=== PATIENT | male | born 1950 | race Caucasian/White ===

== ENCOUNTER → 2019-01-05 | Outpatient (CLI) | payer OTHER ==
[~2019-01-05] VITALS: Ht 185.4 cm; Wt 112.5 kg
[~2019-01-05] MED LIST: CENTRUM SILVER1 EAC4 PO; CLARITIN10 MG PO; FISH OIL 1,001000 M2 PO; HYDROCODONE-AP1 EAC6 PO; IBUPROFEN 200200 M1 PO; LISINOPRIL10 MG PO; ONDANSETRON HCL4 M3 PO; PEPCID AC20 MG PO; PRINIVIL10 MG PO; PROTONIX40 M1 PO; TUMS PO
--- NOTE | ~2019-01-05 | P ---
[facility] [place] [address] [place] [address] PROCEDURE REPORT Name: SHAKEELGUIDavid YATES Room #: [facility] [id number] Admission: 01/05/19 ������������������ Attend Phys: Kevon Peng Discharge: ������������������ Date of : 50 Report #: [id number] THIS REPORT FOR: //name// CC: Kevon Franklin DO DATE OF SERVICE: 01/05/2019 PROCEDURE PERFORMED: Upper endoscopy with biopsies. HISTORY OF PRESENT ILLNESS: The patient is a 69-year-old male with a history of anemia. Hemoglobin has been in the 6.9-7.1 range recently. He denies any obvious bright red blood per rectum or melena. He does report using Advil b.i.d. for a long period of time. He reports mild heartburn symptoms at times. He has taken Pepcid in the past on a p.r.n. basis. Denies any dysphagia. Plan is for EGD and colonoscopy today. DESCRIPTION OF PROCEDURE: The risks and benefits of the procedure were explained to the patient, those risks including but not limited to bleeding, perforation, the risk of sedation. He understood these risks and gave informed consent. Sedation was given using propofol per anesthesia. Next, using a standard Olympus upper endoscope, the scope was placed in the patient's mouth and advanced under direct vision through the esophagus, stomach and into the second portion of the duodenum. The upper and mid esophagus were normal in appearance. At the GE junction, grade A erosive esophagitis was noted. Also, noted was a possible short segment of Warren's. Biopsies were obtained. Overall, the gastric mucosa was normal. The pylorus was normal and patent. The duodenal bulb, first and second portion were all normal. Biopsies of the duodenum were obtained to rule out the possibility of celiac sprue. The scope was then withdrawn and the procedure terminated. The patient tolerated the procedure well. IMPRESSION: 1. Grade A erosive esophagitis. No signs of bleeding. 2. 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 3. Otherwise, normal upper endoscopy. RECOMMENDATIONS: 1. Await biopsy results. 2. Recommend daily PPI therapy. 3. We will proceed with colonoscopy next today. [facility] [address] [place] [address] PROCEDURE REPORT Name: GUI BECKFORD Room #: [facility] [id number] Admission: 01/05/19 ������������������ Attend Phys: Kevon Peng Discharge: ������������������ Date of : 50 Report #: [id number] Thank you for allowing me to participate in his care. ��������������������������������������������� ���������������������������������������� By: ��������������������������������������������� 1149 8 Kevon Alonso MD /nt
--- NOTE | ~2019-01-05 | P ---
[facility] [place] [address] PROCEDURE REPORT Name: SHAKEELGUIDavid YATES Room #: REG [facility]#: [id number] Admission: 01/05/19 ������������������ Attend Phys: Kevon Peng Discharge: ������������������ Date of : 50 Report #: [id number] THIS REPORT FOR: //name// CC: Kevon Franklin DO DATE OF SERVICE: 01/05/2019 PROCEDURE PERFORMED: Colonoscopy with biopsies. HISTORY OF PRESENT ILLNESS: The patient is a 69-year-old male with a history of anemia, recent hemoglobin were 6.9 and 7.1. He denies any obvious bright red blood per rectum or melena. No abdominal pain. He does report loose stools after having his gallbladder removed. Upper endoscopy was just performed, which showed grade A erosive esophagitis, mild. No evidence of bleeding, possible Warren's, otherwise negative. No family history of colon cancer. Plan is for colonoscopy next today. DESCRIPTION OF PROCEDURE: The risks and benefits of the procedure were explained to the patient, those risks including but not limited to bleeding, perforation and the risk of sedation. He understood these risks and gave informed consent. Sedation was given using propofol per anesthesia. Next, a digital rectal exam was initially performed, which showed external hemorrhoids. Next, using a standard Olympus colonoscope, the scope was placed in the patient's anus and advanced under direct vision to the cecum. The overall prep was excellent. In the cecum, there was a 4 mm sessile polyp. This was removed with cold forceps, otherwise normal. The ileocecal valve was normal. The terminal ileum was intubated and normal in appearance. The ascending, transverse, descending and sigmoid colon were normal. The rectal mucosa was normal. On retroflexion, small internal hemorrhoids were noted and again external hemorrhoids were noted as the scope was then withdrawn. No evidence of bleeding. The scope was then withdrawn and the procedure terminated. The patient tolerated the procedure well. IMPRESSION: 1. Small colonic polyp. 2. Internal and external hemorrhoids. 3. Otherwise, normal colonoscopy. RECOMMENDATIONS: 1. Await biopsy results. 2. If polyp is hyperplastic, repeat in 10 years; if adenomatous polyp, repeat in 5 years. 3. There were no signs or stigmata of bleeding on exam today. The patient has grade A erosive esophagitis and hemorrhoids, but again no signs of bleeding. [address] [address] PROCEDURE REPORT Name: GUI BECKFORD Room #: REG CLI Ghassan#: [id number] Admission: 01/05/19 ������������������ Attend Phys: Kevon Peng Discharge: ������������������ Date of : 50 Report #: [id number] Could proceed with cardiac catheterization at this time. Consider Hemoccult testing stools. Also, would recommend oral iron therapy and continuing to monitor hemoglobin. Thank you for allowing me to participate in his care. ��������������������������������������������� ���������������������������������������� By: ��������������������������������������������� 1223 08 Kevon Alonso MD /julio césar
--- NOTE | 2019-01-06 16:06 | PATH ---
[facility] [place] [address] PATHOLOGY RPT PROCEDURE Name: BECKFORDRENÉDavid YATES Room #: REG [facility] MJames.#: [id number] ������������������ Admission: 01/05/19 ������������������ Date of : 50 Discharge: Report #: [id number] Path Case #: [id number] [facility] Accession Number: [id number] . 01 Material submitted: . PART A: duodenum - DUODENAL BX R/O SPRUE HX: ANEMIA PART B: esophagus - BX DISTAL ESOPHAGUS R/O BARRETTS. Modifiers: distal PART C: cecum - BX POLYP AT CECUM . 01 Clinical history: . Pre-OP DX: Anemia Post-OP DX: Esophagitis, anemia, colon polyp, hemorrhoids . 02 Diagnosis: A. Small bowel mucosa, duodenum, rule out sprue, endoscopic biopsy: - No diagnostic abnormalities present. - Negative for villous blunting or increase in intraepithelial lymphocytes. . B. Gastroesophageal mucosa, distal esophagus, rule out Warren's, endoscopic biopsy: - Moderate chronic inflammation. - Negative for intestinal metaplasia or dysplasia. . C. Polyp, at cecum, endoscopic biopsy: - Tubular adenoma. - Negative for high-grade dysplasia. . (IUV:carburetor specialist; 01/06/2019) MBR/01/06/2019 . 02 Electronically signed: . Brisa Cui MD, Pathologist NPI- [id number] . 01 Gross description: . A. Received in formalin labeled "René Beckford BX duodenum, rule out sprue," are 4 segments of middleton soft tissue measuring 1.1 x 0.9 x 0.2 cm in aggregate dimensions and ranging from 0.3 to 0.7 cm in maximum dimension. The specimen is submitted entirely in cassette A1. . B. Received in formalin labeled "René Beckford BX distal esophagus, rule out Warren's," is a single segment of middleton soft tissue measuring 0.5 cm in maximum dimension. The specimen is entirely submitted in cassette B1. . C. Received in formalin labeled "René Beckford BX polyp at cecum," are [address] [address] PATHOLOGY RPT PROCEDURE Name: RENÉ BECKFORD Room #: REG CLMeagan Ferrell#: [id number] ������������������ Admission: 01/05/19 ������������������ Date of : 50 Discharge: Report #: [id number] Path Case #: [id number] 2 segments of middleton soft tissue measuring 0.9 x 0.2 x 0.1 cm in aggregate dimensions and ranging from 0.4 to 0.5 cm in maximum dimension. The specimen is submitted entirely in cassette C1. (TSD; 01/05/2019) TOB/TOB . 02 Pathologist provided ICD-10: K20.9, D12.0 . 02 CPT . 896380, 313066, 376118 Specimen Comment: A courtesy copy of this report has been sent to Specimen Comment: [phone], . Specimen Comment: Report sent to / DR WIGGINS Performed at: [address], [place] [id number] MD Ted Yarbrough MD Phone: [phone] Performed at: [address] [id number] MD Brisa Cui MD Phone: [phone]
== END | disposition home or self-care (01) ==
LOC: GI 08:42
DX: D12.0 Benign neoplasm of cecum (principal); K20.9 Esophagitis, unspecified; K64.8 Other hemorrhoids; K64.4 Residual hemorrhoidal skin tags; I10 Essential (primary) hypertension; K21.9 Gastro-esophageal reflux disease without esophagitis; Z90.49 Acquired absence of other specified parts of digestive tract; Z87.891 Personal history of nicotine dependence; Z98.890 Other specified postprocedural states; Z79.899 Other long term (current) drug therapy
CPT/HCPCS: 62110; 62900

== ENCOUNTER → 2019-02-10 | Outpatient (CLI) | payer OTHER ==
[2019-02-10 09:00] VITALS: BP 142/61
[2019-02-10 10:25] VITALS: BP 129/61
--- NOTE | 2019-02-10 15:03 | NUR ---
IN FOR 1ST DAY OF INJECTAFER FOR IRON DEFICIENCY ANEMIA. ADMISSION HISTORY AND ASSESSMENT COMPLETED. TOLERATED INFUSION WITHOUT INCIDENT. OBSERVED FOR 30 MINUTES POST INFUSION. NO ADVERSE REACTION NOTED. BP GOOD. TO RETURN NEXT THURSDAY FOR 2ND INFUSION. DISMISSED IN GOOD CONDITION.
== END ==
LOC: OPONC 06:29
DX: D50.9 Iron deficiency anemia, unspecified (principal); T45.4X5A Adverse effect of iron and its compounds, initial encounter; D63.8 Anemia in other chronic diseases classified elsewhere
CPT/HCPCS: 95000

== ENCOUNTER → 2019-02-17 | Outpatient (CLI) | payer OTHER ==
[2019-02-17 08:55] VITALS: BP 165/71
[2019-02-17 09:34] VITALS: BP 157/67
[2019-02-17 10:00] VITALS: BP 132/61
[2019-02-17 10:30] VITALS: BP 133/65
--- NOTE | 2019-02-17 10:30 | NUR ---
HERE FOR 2ND AND FINAL INFUSION OF INJECTAFER. REPORTS DOING WELL WITH FIRST INFUSION, NO NOTED SIDE EFFECTS POST. STATES ALREADY FEELING BETTER. TOLERATED TODAY'S INFUSION WITHOUT INCIDENT, NO S/S REACTION. WATCHED FOR 30 MIN POST, VSS. DISMISSED IN STABLE CONDITION. WILL CONTACT DR. WIGGINS TO FIND OUT WHAT HIS F/U PLAN WILL BE INCLUDING LABS.
== END ==
LOC: OPONC 00:29
DX: D50.9 Iron deficiency anemia, unspecified (principal); T45.4X5D Adverse effect of iron and its compounds, subsequent encounter; D63.8 Anemia in other chronic diseases classified elsewhere
CPT/HCPCS: 95000